=== PATIENT | male | born 1995 | race Caucasian/White ===

== ENCOUNTER 2023-11-18 21:42 | Inpatient (IN) ==
[2023-11-18 22:31] LABS: Basophils # (auto) 0.06 K/uL (0.00-0.20); Basophils % (auto) 0.9 %; Eosinophils # (auto) 0.02 K/uL (0.00-0.50); Eosinophils % (auto) 0.3 %; Hematocrit (blood only) 46.7 % (42.0-52.0); Hemoglobin 16.9 g/dl (14.0-18.0); Immature Granulocytes # (auto) 0.01 K/uL (0.01-0.20); Immature Granulocytes % (auto) 0.1 %; Lymphocytes # (auto) 1.97 K/uL (1.20-3.40); Lymphocytes % (auto) 29.2 %; Mean Corpuscular Hemoglobin 31.1 pg (25.0-34.0); Mean Corpuscular Hgb Conc 36.2 g/dL (32.0-36.0); Mean Platelet Volume 9.6 fL (9.4-12.4); Monocytes # (auto) 0.89 K/uL (0.11-0.59); Monocytes % (auto) 13.2 %; Neutrophils % (auto) 56.3 %; Platelet Count 202 K/uL (130-400); RDW Coefficient of Variation 11.8 % (11.5-14.5); RDW Standard Deviation 36.8 fL (36.4-46.3); Red Blood Count 5.43 M/uL (4.70-6.10); White Blood Count 6.75 K/ul (4.8-10.8)
--- NOTE | 2023-11-18 22:33 | Emergency Department Note ---
Impression & Plan Alcohol intoxication, Alcohol withdrawal, Transaminitis ED Provider Note HISTORY OF PRESENT ILLNESS: Patient is a 28-year-old male presenting with concern for alcohol withdrawal. Patient reports he has been on "a 13-day [place]." States that he has been drinking 14-17 shots of rum a day. He states that he tried to stop drinking yesterday but started to feel like he was withdrawing today and has had 2 shots. His last drink was at 1300 today. He reports having "recurrent episodes of anxiety attacks." He denies any previous history of seizures. He does not drink daily other than outside of the last 13 days. He states he is normally a binge drinker and drinks 1 to 3 days a week. He denies any visual hallucinations. Denies any chest pain or shortness of breath. Patient does report he vomited earlier. ROS: as above PHYSICAL EXAM: Constitutional: Patient appears in no acute distress. HENT: Head: Normocephalic and atraumatic. Eyes: EOMI, PERRL Mouth/Throat: Mucous membranes moist. Neck: Trachea midline. Neck supple. Cardiovascular: RRR, No murmurs, rubs or gallops. Intact distal pulses. Pulmonary/Chest: No respiratory distress. Breath sounds clear and equal bilaterally. No wheezes or rales. Abdominal: Abdomen soft, no tenderness, rebound or guarding. Musculoskeletal: No edema, tenderness or deformity noted. Skin: Warm and dry. No rash, erythema, pallor or cyanosis Psychiatric: Appropriate mood and affect for situation. Neurological: Alert and keenly responsive. CN II-XII grossly intact, moving all extremities equally and fully. MDM: - Vitals signs showed hypertension - History obtained via patient. History as above. - Chronic conditions affecting care: None - Differential diagnoses include, but are not limited to: Alcohol intoxication; drug intoxication; alcohol withdrawal; electrolyte abnormality; dysrhythmia - Order placed for continuous cardiac monitoring. At this time, monitor showed rate of 75 bpm with normal sinus rhythm, per my interpretation. - External medical records reviewed. - EKG interpreted by myself showed normal sinus rhythm. Rate 69 bpm. QT 382. No acute ischemic changes. - Laboratory workup interpreted by myself showed normal WBC; stable electrolytes; elevated total bilirubin (1.3); transaminitis (AST 306; ALT 246); normal lipase; normal troponin; negative salicylate/acetaminophen levels; elevated alcohol (189.7) - Patient given banana bag in ER. - Discussed treatment options with the patient. He does feel comfortable with plan for discharge home. He does not require inpatient admission at this time. He was instructed on Librium dosing for a Librium taper. - Patient was given 0.5 mg IV ativan in ER for AWSS score of 8. - Patient monitored in ER for 5 hours. On reassessment at or 2:40 AM, the patient is clinically sober. He is alert and oriented and answering questions. He ambulates without any significant gait instability. He has not required any Ativan since since 23:12 and has an AWSS score of 1. He has no significant withdrawal symptoms at this time. He was given a dose of 50 mg Librium to take home with him for tonight. A prescription for Librium 50 mg tabs was sent to the patient's pharmacy. Plan for 4-day taper, with a total of 10 tabs prescribed. Plan for 4 tabs on day 1, 3 tabs on day 2, 2 tabs on day 3 and 1 tablet at bedtime and day 4. Instructed the patient that he should not drink while on this medication. Instructed on return precautions. - Patient remained stable throughout the visit. Results were discussed with the patient and patient's family. They were given the opportunity to ask questions. Had lengthy discussion with patient about supportive care return precautions. No changes to medications. Patient to follow up with primary care physician for further evaluation and management. All questions answered. Patient agreeable plan. ASSESSMENT AND PLAN: Diagnosis: acute alcohol intoxication; alcohol withdrawal; transaminitis Plan: discharge Past Med/Surg History Problem List (Updated 11/19/23 @ 02:46 by Alexandra Willoughby MD) Transaminitis (Acute) Alcohol withdrawal (Acute) Alcohol intoxication (Acute) Social History Smoking Status: Never smoker Preferred Language: Maori Feels Safe at Home: Yes Allergies Allergies Allergy/AdvReac Type Severity Reaction Status Date / Time [id number] Allergy Mild Uncoded 01/14/08 18:24 Home Meds Previous Rx's Medication Instructions Recorded chlordiazepoxide HCl 25 mg capsule See Rx Instructions .Route 11/19/23 .COMPLEX #10 caps Results & Data (ED) Vital Signs Vital Signs - 24 hr 11/18/23 21:44 11/18/23 21:59 11/18/23 22:00 Temperature 36.3 C L Temperature Source Temporal Artery Scan Pulse Rate 97 H 76 Pulse Rate [Apical] 82 Pulse Rate from SpO2 Sensor Pulse Rhythm Regular Pulse Rhythm [Apical] Regular Pulse Strength [Apical] Respiratory Rate 20 19 Respiratory Effort / Characteristics Non-Labored Non-Labored Spontaneous Respiratory Depth Normal Normal Respiratory Pattern Regular Regular Blood Pressure 152/98 H Blood Pressure [Right Arm] 152/102 H Blood Pressure Mean 116 Blood Pressure Mean [Right Arm] 118 Pulse Oximetry 94 98 Oxygen Delivery Method Room Air Room Air Sepsis Recent Fever Within 48 Hours No Sepsis New/Unexplained Change in Mental Status No Sepsis Action Taken by Nursing No Action Required 11/18/23 22:09 11/18/23 22:15 11/18/23 22:24 Temperature Temperature Source Pulse Rate 79 67 80 Pulse Rate [Apical] Pulse Rate from SpO2 Sensor 77 70 81 Pulse Rhythm Pulse Rhythm [Apical] Pulse Strength [Apical] Respiratory Rate 15 18 16 Respiratory Effort / Characteristics Respiratory Depth Respiratory Pattern Blood Pressure Blood Pressure [Right Arm] Blood Pressure Mean Blood Pressure Mean [Right Arm] Pulse Oximetry 98 97 97 Oxygen Delivery Method Sepsis Recent Fever Within 48 Hours Sepsis New/Unexplained Change in Mental Status Sepsis Action Taken by Nursing 11/18/23 22:28 11/18/23 22:36 11/18/23 23:15 Temperature Temperature Source Pulse Rate 72 76 72 Pulse Rate [Apical] Pulse Rate from SpO2 Sensor 76 73 Pulse Rhythm Regular Pulse Rhythm [Apical] Pulse Strength [Apical] Respiratory Rate 18 22 17 Respiratory Effort / Characteristics Respiratory Depth Respiratory Pattern Blood Pressure 129/95 Blood Pressure [Right Arm] Blood Pressure Mean 105 Blood Pressure Mean [Right Arm] Pulse Oximetry 98 98 97 Oxygen Delivery Method Room Air Room Air Sepsis Recent Fever Within 48 Hours Sepsis New/Unexplained Change in Mental Status Sepsis Action Taken by Nursing 11/19/23 00:16 11/19/23 00:31 11/19/23 00:45 Temperature Temperature Source Pulse Rate 70 79 72 Pulse Rate [Apical] Pulse Rate from SpO2 Sensor 75 77 71 Pulse Rhythm Pulse Rhythm [Apical] Pulse Strength [Apical] Respiratory Rate 15 19 22 Respiratory Effort / Characteristics Respiratory Depth Respiratory Pattern Blood Pressure 114/78 114/76 119/85 Blood Pressure [Right Arm] Blood Pressure Mean 102 91 102 Blood Pressure Mean [Right Arm] Pulse Oximetry 97 96 95 Oxygen Delivery Method Room Air Room Air Room Air Sepsis Recent Fever Within 48 Hours Sepsis New/Unexplained Change in Mental Status Sepsis Action Taken by Nursing 11/19/23 01:15 11/19/23 01:18 11/19/23 01:48 Temperature 37 C Temperature Source Oral Pulse Rate 75 67 Pulse Rate [Apical] 80 Pulse Rate from SpO2 Sensor 75 Pulse Rhythm Pulse Rhythm [Apical] Regular Pulse Strength [Apical] Normal Respiratory Rate 16 20 Respiratory Effort / Characteristics Non-Labored Respiratory Depth Normal Respiratory Pattern Regular Blood Pressure 120/91 Blood Pressure [Right Arm] 120/91 Blood Pressure Mean 99 Blood Pressure Mean [Right Arm] 100 Pulse Oximetry 98 97 Oxygen Delivery Method Room Air Room Air Sepsis Recent Fever Within 48 Hours Sepsis New/Unexplained Change in Mental Status Sepsis Action Taken by Nursing Laboratory Data 11/18/23 Unknown 11/18/23 Unknown Lab Results 11/18/23 Range/Units Unknown WBC 6.75 (4.8-10.8) K/ul RBC 5.43 (4.70-6.10) M/uL Hgb 16.9 (14.0-18.0) g/dl Hct 46.7 (42.0-52.0) % MCV 86.0 (80.0-100.0) fL MCH 31.1 (25.0-34.0) pg MCHC 36.2 H (32.0-36.0) g/dL RDW Std Deviation 36.8 (36.4-46.3) fL RDW Coeff of Carl 11.8 (11.5-14.5) % Plt Count 202 (130-400) K/uL MPV 9.6 (9.4-12.4) fL Immature Gran % (Auto) 0.1 % Neut % (Auto) 56.3 % Lymph % (Auto) 29.2 % [place] % (Auto) 13.2 % Eos % (Auto) 0.3 % Baso % (Auto) 0.9 % Neut # (Auto) 3.80 (1.40-6.50) K/uL Lymph # (Auto) 1.97 (1.20-3.40) K/uL [place] # (Auto) 0.89 H (0.11-0.59) K/uL Eos # (Auto) 0.02 (0.00-0.50) K/uL Baso # (Auto) 0.06 (0.00-0.20) K/uL Immature Gran # (Auto) 0.01 (0.01-0.20) K/uL PT 13.7 H (9.0-12.0) Seconds INR 1.3 H (0.9-1.1) Sodium 136 (136-145) mmol/L Potassium 3.5 (3.5-5.1) mmol/L Chloride 101 (98-107) mmol/L Carbon Dioxide 24 (21-32) mmol/L Anion Gap 11 (3-11) BUN 15 (6-23) mg/dl Creatinine 1.08 (0.6-1.4) mg/dl Est Cr Clr Drug Dosing 142.4 ml/min Est GFR ( Amer) 106.9 ml/min Est GFR (Non-Af Amer) 92.3 ml/min BUN/Creatinine Ratio 13.9 (10-20) Glucose 143 H (70-99(Fasting)) mg/dl Calcium 8.1 L (8.6-10.3) mg/dl Total Bilirubin 1.3 H (0.2-1.0) mg/dl AST 306 H (13-39) U/L ALT 246 H (7-52) U/L Alkaline Phosphatase 64 (34-104) U/L Troponin I High Sens 3.1 (0-20) pg/ml Total Protein 6.6 (6.0-8.3) gm/dl Albumin 4.0 (3.4-5.0) gm/dl Globulin 2.6 (2.5-4.0) gm/dl Albumin/Globulin Ratio 1.5 (0.9-2) Lipase 35 (11-82) U/L Salicylates < 3.0 L (3.0-30) mg/dl Acetaminophen < 3 L (10-30) ug/ml Ethyl Alcohol mg/dL 189.7 H (<10.0) mg/dl Administered Medications Discontinued Medications Multivitamins 10 ml/ Thiamine HCl 100 mg/ Folic Acid 1 mg/Sodium Chloride 1,011.2 mls @ 500 mls/hr IV .Q2H2M ONE Stop: 11/19/23 00:11 Last Infusion: 11/19/23 00:56 Dose: Infused Documented By: Admin: 11/18/23 22:50 Dose: 500 mls/hr Documented By: DIDI Lorazepam (Lorazepam 1 Mg/1 Ml Syr Ed Inj Use) 0.5 mg IV ONE STA Stop: 11/18/23 23:01 Last Admin: 11/18/23 23:12 Dose: 0.5 mg Documented By: [facility] Discharge Plan Visit Data Chief Complaint: Alcohol Withdrawal Stated Complaint: ALCOHOL WITHDRAWAL ED Provider: Alexandra Willoughby Discharge Problem: Alcohol intoxication, Alcohol withdrawal, Transaminitis Patient Disposition: Home - Self-Care Discharge Instructions Krames/Other Patient Handouts: ED Alcohol Intoxication Activity Restrictions/Additional Instructions: Your laboratory workup was negative for any acute pathology. Your alcohol level was noted to be elevated in the emergency department. You are being started on a medication to help transition you to sobriety in the outpatient setting. It is extremely important that you do not drink while you are on this medication. Please return to the emergency department if you develop hallucinations, chest pain or shortness of breath, tremors, tachycardia or elevated heart rate, persistent vomiting, or any new or worsening symptoms. Recommend staying well- hydrated over the next few days. Your lab work does show significant elevation in your liver function test, which can be seen with binge drinking. Does recommend you follow-up closely with your primary care provider to get repeat testing of your liver function done next week. Librium taper: - Day 1: 50 mg four times a day - Day 2: 50 mg three times a day - Day 3: 50 mg two times a day - Day 4: 50 mg at bedtime Forms Stand Alone Forms: My [facility], Suicide Prevention Resources, Important Visit Information Prescriptions Prescriptions: New chlordiazepoxide HCl 25 mg capsule See Rx Instructions .ROUTE .COMPLEX Qty: 10 0RF Rx Instructions: Day 1: 50 mg four times a day on day 1. 50 mg three times a day on day 2. 50 mg twice daily on day 3. 50 mg at bedtime on day 4. Referrals Referrals: Kerri Moreira MD [Primary Care Provider] -
[2023-11-18 22:48] LABS: Albumin Globulin Ratio 1.5 (0.9-2); BUN Creatinine Ratio 13.9 (10-20); Bilirubin,Total 1.3 mg/dl (0.2-1.0); Calcium 8.1 mg/dl (8.6-10.3); Creatinine Clr Calc Pharmacy 142.4 ml/min; Est GFR (African American) 106.9 ml/min; Est GFR (Non-African American) 92.3 ml/min; Globulin 2.6 gm/dl (2.5-4.0); Potassium 3.5 mmol/L (3.5-5.1); Total Protein 6.6 gm/dl (6.0-8.3)
[2023-11-18] MEDS: MULTI-VITAMIN INFUSION 10 ML, THIAMINE HCL 100 MG, FOLIC ACID 1 MG in SODIUM CHLORIDE 0... IV ONE (22:50)
[2023-11-18 22:55] LABS: Troponin I High Sensitivity 3.1 pg/ml (0-20)
[2023-11-18 23:11] LABS: Acetaminophen < 3 ug/ml (10-30); Salicylate < 3.0 mg/dl (3.0-30)
[2023-11-18] MEDS: LORazepam 1 MG/1 ML SYR ED Inj Use IV STA (23:12)
[2023-11-18 23:27] LABS: INR 1.3 (0.9-1.1); Prothrombin Time 13.7 Seconds (9.0-12.0)
[2023-11-19] MEDS: chlordiazePOXIDE HCl 25 MG CAP PO ONE (03:24)
--- NOTE | 2023-11-19 04:21 | History & Physical Report ---
Date of Service November 19, 2023 Assessment & Plan (1) Alcohol withdrawal: Plan: -Alcohol level 189 at time of admission. -No history of seizures with past withdrawals. Was going to go home on a Librium taper but started to have hallucinations of seeing a penguin. States that he has history of hallucinations with withdrawal. -[facility] protocol in place. -Thiamine and folic acid daily. -Will keep n.p.o. at this time, continue on LR at 125 mL an hour. -Will monitor on telemetry. (2) Transaminitis: Plan: -Elevated AST of 306, elevated ALT of 246. -Most likely in the setting of alcohol abuse. -Will monitor with daily labs. Plan Fluids: LR at 125 mL an hour Nutrition: N.p.o. Code status: Full code DVT ppx: Low risk Dispo: med/surg with telemetry History of Present Illness Chief Complaint: Alcohol withdrawal Primary Care Provider: NO PCP Patient is a 28-year-old without any significant past medical history who presents to the hospital with alcohol withdrawal. Patient states that his last drink was around 1300 today. States that he has been on a 13-day binge of drinking. States that he has been drinking liquor specifically around about 1518 drinks a day. States that he feels very anxious but denies any history of seizures in the past. Does state that in the ED he had some hallucinations of seeing a penguin. States that he has had hallucinations before with withdrawal. Denies any current hallucinations at this time. In the ED: Alcohol level of 189.7, elevated AST and ALT, CBC benign. Vital signs stable. Was supposed to go home on a Librium taper though patient did not feel safe going home and started to have hallucinations. Allergies Allergy/AdvReac Type Severity Reaction Status Date / Time No Known Allergies Allergy Unverified 11/19/23 05:08 Home Medications Medication Instructions Recorded Confirmed Type chlordiazepoxide HCl 25 mg capsule See Rx Instructions .Route 11/19/23 Rx .COMPLEX #10 caps Past Med/Surg History Problem List (Updated 11/19/23 @ 02:46 by Alexandra Willoughby MD) Transaminitis (Acute) Alcohol withdrawal (Acute) Alcohol intoxication (Acute) Social History Smoking Status: Never smoker Preferred Language: Belarusian Feels Safe at Home: Yes Review of Systems Review of Systems: All systems reviewed & are unremarkable except as noted in Subjective Physical Exam Physical Exam: Constitutional: well-appearing, no acute distress HEENT: NCAT, no conjunctival injection CV: regular rhythm, no murmur appreciated, extremities well-perfused, no LE edema Resp: CTABL, no wheezes/rales/rhonchi appreciated, no increased work of breathing GI: soft, nondistended, nontender, BS normoactive MSK: no gross deformities appreciated Skin: warm, dry, no rash appreciated Neuro: alert, oriented, no focal neurologic deficit appreciated Results & Data Results & Data Vital Signs (Past 12 Hours) Vital Signs Temp Pulse Pulse Resp BP BP Pulse Ox 11/19/23 03:30 77 19 95 11/19/23 03:21 97 11/19/23 03:12 96 11/19/23 02:31 78 15 137/80 97 11/19/23 01:48 67 11/19/23 01:18 37 C 80 20 120/91 97 11/19/23 01:15 75 16 120/91 98 11/19/23 00:45 72 22 119/85 95 11/19/23 00:31 79 19 114/76 96 11/19/23 00:16 70 15 114/78 97 11/18/23 23:15 72 17 129/95 97 11/18/23 22:36 76 22 98 11/18/23 22:28 72 18 98 11/18/23 22:24 80 16 97 11/18/23 22:15 67 18 97 11/18/23 22:09 79 15 98 11/18/23 22:00 82 19 152/102 H 98 11/18/23 21:59 76 11/18/23 21:44 36.3 C L 97 H 20 152/98 H 94 O2 Del Method 11/19/23 03:30 11/19/23 03:21 11/19/23 03:12 11/19/23 02:31 Room Air 11/19/23 01:48 11/19/23 01:18 Room Air 11/19/23 01:15 Room Air 11/19/23 00:45 Room Air 11/19/23 00:31 Room Air 11/19/23 00:16 Room Air 11/18/23 23:15 Room Air 11/18/23 22:36 11/18/23 22:28 Room Air 11/18/23 22:24 11/18/23 22:15 11/18/23 22:09 11/18/23 22:00 Room Air 11/18/23 21:59 11/18/23 21:44 Room Air
[2023-11-19] MEDS ORDERED: LORazepam 1 MG in SYRINGE 0.5 ML IV PRN (04:29)
[2023-11-19] MEDS: Patient's ALLERGY Info needs ENTERED STA (05:09)
[2023-11-19] MEDS: ONDANSETRON INJ 2 MG/ML 2 ML VIAL IV STA (05:32)
[2023-11-19] MEDS: LACTATED RINGER'S 1,000 ML IV SCH (05:32)
[2023-11-19] MEDS: FOLIC ACID 1 MG in SYRINGE 9.8 ML IV SCH (09:35)
[2023-11-19] MEDS: THIAMINE HCL 100 MG in SYRINGE 9 ML IV SCH (09:35)
[2023-11-19] MEDS: chlordiazePOXIDE HCl 25 MG CAP PO SCH (11:18)
[2023-11-19] MEDS: chlordiazePOXIDE ALCOHOL WITHDRAWL 50MG PO STA (11:20)
[2023-11-19] MEDS ORDERED: ONDANSETRON INJ 2 MG/ML 2 ML VIAL IV PRN (13:29)
--- NOTE | 2023-11-19 17:06 | Electrocardiogram Report ---
Test Reason : Blood Pressure : / mmHG Vent. Rate : 069 BPM Atrial Rate : 069 BPM P-R Int : 148 ms QRS Dur : 118 ms QT Int : 382 ms P-R-T Axes : 055 -53 038 degrees QTc Int : 409 ms Normal sinus rhythm Left anterior fascicular block Abnormal ECG When compared with ECG of 29-AUG-2012 00:25, QRS duration has increased Confirmed by Trip Honeycutt ([id number]) on 11/19/2023 5:06:09 PM Referred By: REFERRED SELF Confirmed By:Trip Honeycutt
--- NOTE | 2023-11-19 18:47 | Discharge Summary ---
Discharge Summary Date of Service November 19, 2023 Principal Dx & Hospital Course #1 = Principal Diagnosis (1) Alcohol withdrawal: 28-year-old man who had been binge drinking for at least 10 days then desire to quit started to self taper for a few days then developed alcohol withdrawal symptoms and came to the ED -Alcohol level 189 at time of admission. -No history of seizures with past withdrawals. Was going to go home from ED on a Librium taper but started to have hallucinations of seeing a penguin. States that he has history of hallucinations with withdrawal. - continue to only have mild withdrawal symptoms controlled on oral Librium and no further hallucinations today - discharged with oral Librium taper, oral thiamine, return precautions to the ED if withdrawal symptoms become severe. counseled no driving while on Librium and his friends will help supervise him at home until he is improved (2) Transaminitis: mild alcoholic hepatitis Elevated AST of 306, elevated ALT of 246, mild bilirubin and INR elevation supportive care, strongly counseled alcohol cessation Plan severe alcohol use disordermainly binge drinking episodes, counseled alcohol cessation strongly recommended a rehab program either in person meetings or online resources Admission HPI Per Admitting Provider Patient is a 28-year-old without any significant past medical history who presents to the hospital with alcohol withdrawal. Patient states that his last drink was around 1300 today. States that he has been on a 13-day binge of drinking. States that he has been drinking liquor specifically around about 1518 drinks a day. States that he feels very anxious but denies any history of seizures in the past. Does state that in the ED he had some hallucinations of seeing a penguin. States that he has had hallucinations before with withdrawal. Denies any current hallucinations at this time. In the ED: Alcohol level of 189.7, elevated AST and ALT, CBC benign. Vital signs stable. Was supposed to go home on a Librium taper though patient did not feel safe going home and started to have hallucinations. Updated Medication List Medication Instructions Recorded Confirmed Type chlordiazepoxide HCl 25 mg capsule See Rx Instructions .Route 11/19/23 Rx .COMPLEX #10 caps ondansetron 4 mg disintegrating 4 mg PO Q6H PRN nausea and 11/19/23 Rx tablet vomiting #14 tabs Hospital Stay Data Consultations 11/19/23 03:21 ED Decision to Admit Stat Pending Results Patient Have Any Pending Studies at Discharge: No Discharge Instructions Given to Patient (Per Discharging Provider) You were treated for alcoholic hallucinosis and alcohol withdrawal You have some mild liver inflammation from drinking too much (alcoholic hepatitis) I strongly advise alcohol cessation and enrolling in an alcohol rehab program for support - there are many AA meetings and there are online rehab options as well Return to the ED if you have severe withdrawal symptoms despite the librium (chlordiazepoxide) taper - like severe shakes/sweats or confusion Have your friends check on you regularly Do not drive while taking chlordiazepoxide because it can impair your coordination or attention Home Health Attestation I certify that this patient is under my care and that I, or a physicians data entry assistant working with me, had a face to-face encounter that meets the home health [id number] encounter requirements with this patient. The encounter with the patient was in whole, or in part, for the following medical condition, which is the primary reason for home health care (list medical condition): I certify that, based on my findings, the following services are medically necessary home health services: My clinical findings support the need for the above services because: Further, I certify that my clinical findings support that this patient is homebound (i.e. absences from home require considerable and taxing effort and are for medical reasons or adventism services or infrequently or of short duration when for other reasons) because: Certification for Home Health Services: Based on the above findings, I certify that this patient is confined to the home and needs intermittent fpc care, physical therapy and/or speech therapy or continues to need occupational therapy. The patient is under my care, and I have initiated the establishment of the plan of care. This patient will be followed by a physician who will periodically review the plan of care. Total Time Total Time Spent Total Time Spent (In Minutes): <30 Coding Level of Care Code 69218 IN/OBS DISCH 30 MIN/LESS Diagnoses Alcohol withdrawal F10.939 Transaminitis R74.01
[2023-11-20] MEDS ORDERED: chlordiazePOXIDE HCl 25 MG CAP PO SCH (12:30)
[2023-11-21] MEDS ORDERED: chlordiazePOXIDE HCl 25 MG CAP PO SCH (12:30)
== END 2023-11-19 16:11 | disposition home or self-care (01) | DRG 897 ==
LOC: ED 21:42 → SUATTDRO 11-19 04:17 → EDINP 11-19 04:17